=== PATIENT | male | born 1955 | race Two or more races ===

== ENCOUNTER 2024-07-01 09:22 | Emergency (ER) | payer MEDICARE, MEDICAID, SELFPAY ==
[2024-07-01 09:22] VITALS: BMI 31.6
[2024-07-01 10:21] VITALS: BP 163/92; PULSE 73; RESP 18; TEMP 37.4; O2SAT 97
--- NOTE | 2024-07-01 10:21 | XR_ITS ---
Examination: Shoulder,right, 3 views Technique: Shoulder AP internal rotation, AP external rotation, Y view shoulder, 3 views Exam date and time :July 01, 2024 1027 hours INDICATIONS: Patient fell 3 days ago with injury to the shoulder, shoulder pain. FINDINGS: No shoulder fracture or dislocation Mild to moderate narrowing glenohumeral joint Moderate osteoarthritis acromioclavicular joint IMPRESSION: No shoulder fracture or dislocation
--- NOTE | 2024-07-01 11:31 | EDNOTE_ITS ---
Upper Extremity Injury RME/HPI General Chief Complaint: Extremity Injury, Upper Stated Complaint: RIGHT SHOULDER PAIN Time Seen by Provider: 07/01/24 09:56 Source: patient Arrival date/time: 07/01/24 09:22 This is a 68 y male here with complaints of right shoulder pain. Patient states he suffered a ground level fall, landing on his rightr shoulder. No other injuries reported. Pain worsened with abduction of arm. Related Data Previous Rx's ?Medication ?Instructions ?Recorded Cyclobenzaprine * (FLEXERIL *) 10 mg PO Q8HR PRN PAIN #10 tabs 01/18/14 ibuprofen 600 mg tablet 600 mg PO Q8H PRN fever or p ain 07/01/24 #30 tabs Allergies Allergy/AdvReac Type Severity Reaction Status Date / Time NKA* Allergy Uncoded 07/01/24 09:24 Review of Systems Review of Systems Systems Reviewed: All systems reviewed, normal except as documented Narrative Review of Systems: Gen: No fever, no chills, no weight loss EYES: No discharge, no visual changes, no pain HEENT: No ear pain, no congestion, no sore throat PULM: No shortness of breath, no cough, no congestion CV: No chest pain, no dyspnea on exertion, no palpitations GI: No nausea, no vomiting, no diarrhea, no pain, no constipation : No frequency, no urgency,? no dysuria Musc/skel: No joint pain, no back pain Skin: No rash? Psyc: No hallucinations, no depression Heme/Lymph: No easy bleeding or bruising tendencies Neuro: No weakness, no headache ED Exam Narrative Physical exam: General: Sittiing in Exam table in no acute distress, answering questions appropriately HENT: normocephalic, atraumatic, EOMI, PERRLA, moist mucous membranes Chest: chest wall is nontender Cardiac: regular rate and rhythm, normal S1 and S2, no murmurs, rubs, or gallops, capillary refill ?2 seconds Pulmonary: clear to auscultation bilaterally, no wheezing, crackles, or rhonchi Abdominal: active bowel sounds, soft, nontender, nondistended Neuro: A&OX3, CN II-XII intact, sensation grossly intact bilaterally in UE and LE. Skin: no rashes, no ecchymosis Ext: no lower extremity edema Course Quality Measures none Orders Category Date Time Status XR shoulder RT min 2V Stat Exams 07/01/24 10:21 Completed Vital Signs Vital signs: Vital Signs Temperature 99.3 F 07/01/24 10:21 Pulse Rate 73 07/01/24 10:21 Respiratory Rate 18 07/01/24 10:21 Blood Pressure 163/92 H 07/01/24 10:21 Pulse Oximetry (%) 97 07/01/24 10:21 Oxygen Delivery Method Room Air 07/01/24 10:21 Extremity Injury Patient data External records reviewed:: [facility] previous records Clinical information provided by:: patient Social determinants that could affect healthcare access:: none Patient has the following chronic illnesses:: htn How is presenting disease/condition affected by chronic disease/condition?: uneffected by Evaluation data The following diagnostics were reviewed and interpreted by me:: radiology exam(s) Lab and/or radiology exams considered but not ordered:: no Interpretation Summary: Examination: Shoulder,right, 3 views Technique: Shoulder AP internal rotation, AP external rotation, Y view shoulder, 3 views Exam date and time :July 01, 2024 1027 hours INDICATIONS: Patient fell 3 days ago with injury to the shoulder, shoulder pain. FINDINGS: No shoulder fracture or dislocation Mild to moderate narrowing glenohumeral joint Moderate osteoarthritis acromioclavicular joint IMPRESSION: No shoulder fracture or dislocation Medications / Prescriptions Medications or Prescriptions considered but not ordered:: no Medication administrations:: no Consultations Consultation(s) initiated? (list below): No Diagnosis Upper Extremity Injury Differential Diagnosis: fracture of wrist, Colles' fracture, dislocation of shoulder, fracture of humerus and fracture of clavicle Most likely diagnosis given after review of the tests above:: shoulder contusoin Admission Indicated Admission indicated?: not indicated Admission Request Was there a request for admission?: No Disposition Plan Disposition Plan: Discharge Discharge Attestation Discharge Attestation: The patient and all family members were given an opportunity to ask questions and understood the discharge instructions. Discharge instructions specifically effects, indications for sooner follow up or return to the emergency department, and the expected course of current diagnosis. Patient condition: Stable Discharge Plan Plan Patient Disposition: HOME (Self Care) Prescriptions/Referrals Prescriptions/Med Rec: New ibuprofen 600 mg tablet 600 mg PO Q8H PRN (Reason: fever or pain) Qty: 30 0RF No Action Cyclobenzaprine * (FLEXERIL *) 10 MG tablet 10 mg PO Q8HR PRN (Reason: PAIN) Qty: 10 0RF Problem List Clinical Impression: Contusion of right shoulder region Patient/Caregiver Discharge Instructions Discharge Activity: activity as tolerated Education Materials: ED Contusion, Upper Extremity Additional Instructions: Your x-ray does not demonstrate any fractures. Please follow-up with your primary doctor for possible MRI outpatient. And take [id number] Tylenol Profen for pain. Turn to the emergency department this any worsening symptoms or change in condition. Print Language: Greek Stand Alone Forms: Becca Award Info., Patient Portal Info Letter PA/EXERCISE SCIENCE INSTRUCTOR Supervising Physician PA/EXERCISE SCIENCE INSTRUCTOR Supervising Physician: Dr Ingram
== END 2024-07-01 12:06 | disposition home or self-care (01) ==
LOC: SERX 12:14
PROVIDERS: Emergency Provider Emergency Medicine
DX: S40.011A Contusion of right shoulder, initial encounter (principal); W19.XXXA Unspecified fall, initial encounter
CPT/HCPCS: 73030; 99283

== ENCOUNTER → 2024-10-07 | Outpatient (CLI) | payer MEDICARE, MEDICAID, SELFPAY ==
--- NOTE | 2024-10-07 11:30 | XR_ITS ---
Examination: CT abdomen with intravenous contrast CT pelvis with intravenous contrast 2-D coronal reconstructions 2-D sagittal reconstructions Date and time of exam:October 07, 2024 1126 hours INDICATIONS: Diagnosis benign neoplasm left adrenal gland, right lower abdomen left lower abdomen discomfort one month. CTDI: vol (mGy) 15.6 DLP: (mGycm) 600 Technique: Multiple axial sections of the abdomen and pelvis have been obtained. 64 slice high-resolution scanner used. 3 mm axial sections have been obtained, post intravenous injection 60 cc [id number] 2-D sagittal, coronal reconstructions obtained. Low dose protocols were performed. One or more of the following dose reduction techniques were used; automated exposure control, adjustment of the mA and/or KV according to patient size, use of iterative reconstruction technique. 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
== END | disposition home or self-care (01) ==
PROVIDERS: PCP Nurse Practitioner Family; Referring Provider Nurse Practitioner Family; Visit Provider Nurse Practitioner Family
DX: E27.8 Other specified disorders of adrenal gland (principal); N32.89 Other specified disorders of bladder
CPT/HCPCS: 74177; A4649; Q9967

== ENCOUNTER → 2024-12-27 | Outpatient (CLI) | payer MEDICARE, SELFPAY ==
--- NOTE | 2024-12-27 14:30 | XR_ITS ---
MRI shoulder, right, without contrast. Date and time: December 27, 2024 1526 hours INDICATIONS: Patient fell May 2024 with injury to the shoulder, persistent shoulder pain Technique: Multiple axial, sagittal and coronal sections of the shoulder have been obtained. Siemens high-resolution 1.5 Nuris MRI scanner is utilized. Axial fat-suppressed sections, TR 2350, TE 18 T2-weighted coronal fat-saturated images, TR 3500, TE 7100 T1-weighted coronal images, TR 500, TE 15 T2-weighted sagittal fat-saturated images, TR 3500, TE 57 T1-weighted sagittal sections, TR 504, TE 13. Findings: Large 3 cm full-thickness rotator cuff tear Subscapularis insertion is intact. Subscapularis bursa is not seen. Long head of the biceps is in the bicipital groove. No definite tear of the biceps superior labral anchor is seen. Retraction of the musculotendinous junction of the rotator cuff is evident. Tendinosis pattern is moderate. Distance between the acromium and humeral head is 2 mm Atrophy of the supraspinatus muscle is severe. Atrophy of the infraspinatus muscle is severe. Sagittal sections demonstrate a horizontal acromion. Acromioclavicular joint demonstrates mild osteoarthritis . Osacromiale is not identified. Labral margins grossly intact, patient motion degrades scan image quality. Bony glenoid fossa on the sagittal sections does not demonstrate osseous defect. Occult fracture or area of avascular necrosis is not seen. Acromioclavicular joint separation is not visible. Defect in the posterolateral margin of the humeral head is not seen Impression: Large full-thickness rotator cuff tear
== END | disposition home or self-care (01) ==
PROVIDERS: PCP Nurse Practitioner Family; Referring Provider Nurse Practitioner Family; Visit Provider Nurse Practitioner Family
DX: S46.011A Strain of muscle(s) and tendon(s) of the rotator cuff of right shoulder, initial encounter (principal); X58.XXXA Exposure to other specified factors, initial encounter
CPT/HCPCS: 73221